=== PATIENT | male | born 2000 | race Caucasian/White ===

== ENCOUNTER 2021-05-31 21:22 | Emergency (ER) | payer OTHER ==
[~2021-05-31] VITALS: Ht 198.1 cm; Wt 119.6 kg
[2021-06-01] MEDS ORDERED: ACETAMINOPHEN TAB 650MG DOSE (2X325MG) PO ONE (00:40)
[2021-06-01] MEDS ORDERED: IBUPROFEN 600MG TAB PO ONE (00:40)
[2021-06-01 01:11] VITALS: BP 132/59
== END 2021-06-01 01:16 | disposition home or self-care (01) ==
LOC: M ED 21:22
DX: S43.402A Unspecified sprain of left shoulder joint, initial encounter (principal); W19.XXXA Unspecified fall, initial encounter; Y92.89 Other specified places as the place of occurrence of the external cause; Y93.9 Activity, unspecified; Y99.1 Military activity; Z88.0 Allergy status to penicillin

== ENCOUNTER 2021-10-16 16:13 | Emergency (ER) | payer OTHER ==
[~2021-10-16] VITALS: Ht 198.1 cm; Wt 135.8 kg
[2021-10-16 19:40] VITALS: BP 142/87
== END 2021-10-16 19:42 | disposition home or self-care (01) ==
LOC: M ED 16:13
DX: M25.511 Pain in right shoulder (principal); V43.62XA Car passenger injured in collision with other type car in traffic accident, initial encounter; Z88.0 Allergy status to penicillin

== ENCOUNTER 2022-08-05 19:16 | Emergency (ER) | payer OTHER ==
[~2022-08-05] VITALS: Ht 198.1 cm; Wt 127.9 kg
[2022-08-05 19:18] VITALS: BP 134/63
[2022-08-05] MEDS ORDERED: CEPHALEXIN 500 MG CAP PO ONE (19:55)
[2022-08-05] MEDS ORDERED: CEPH500C PO (19:57)
== END 2022-08-05 20:10 | disposition home or self-care (01) ==
LOC: M ED 19:16
DX: L03.115 Cellulitis of right lower limb (principal); Z88.0 Allergy status to penicillin